=== PATIENT | female | born 1995 ===

== ENCOUNTER 2024-11-21 08:25 | Outpatient (CLI) | payer OTHER | END 2024-11-21 08:27 | disposition home or self-care (01) | LOC: PRENATAL 08:25 | PROVIDERS: ATTEND Obstetrics & Gynecology Maternal & Fetal Medicine | DX: O44.00 Complete placenta previa NOS or without hemorrhage, unspecified trimester (principal); O26.879 Cervical shortening, unspecified trimester; Z3A.19 19 weeks gestation of pregnancy ==

== ENCOUNTER → 2024-12-24 12:19 | Outpatient (CLI) | payer OTHER | END | disposition home or self-care (01) | LOC: PRENATAL 12:19 | PROVIDERS: ATTEND Obstetrics & Gynecology Maternal & Fetal Medicine | DX: O26.849 Uterine size-date discrepancy, unspecified trimester (principal); O36.8199 Decreased fetal movements, unspecified trimester, other fetus; O26.879 Cervical shortening, unspecified trimester; Z3A.24 24 weeks gestation of pregnancy ==

== ENCOUNTER → 2025-03-04 14:56 | Outpatient (CLI) | payer OTHER | END | disposition home or self-care (01) | LOC: PRENATAL 14:56 | PROVIDERS: ATTEND Obstetrics & Gynecology Maternal & Fetal Medicine | DX: O26.849 Uterine size-date discrepancy, unspecified trimester (principal); O36.8130 Decreased fetal movements, third trimester, not applicable or unspecified; O26.879 Cervical shortening, unspecified trimester; Z3A.34 34 weeks gestation of pregnancy ==